=== PATIENT | female | born 1980 | race Caucasian/White ===

== ENCOUNTER 2016-08-25 13:22 | Inpatient (IN) | payer MEDICAID ==
--- NOTE | ~2016-08-25 | DS ---
Unit #: [id number] #: [id number] Patient: [facility]ID[facility] [id number] [facility] [address] [place] [address] [id number] MR#: [id number] NAME: PALOMO SCHNEIDER ROOM: P171 Age: 36 Sex: F Admission Date: 08/25/2016 : 1980 Discharge Date: 08/29/2016 Attending Physician: Snow Waldron M.D. DISCHARGE SUMMARY IDENTIFYING DATA Ms. Schneider is a 36-year-old single white female who is a resident of [place], [place] and was self-referred to the hospital and was accompanied by her mother. DISCHARGE DIAGNOSES Psychiatric: Opioid dependence, moderate and acute withdrawals; opioid-induced mood disorder. Medical: Hepatitis C. Stressors: Moderate psychosocial stressors. HISTORY OF PRESENT ILLNESS Please see initial psychiatric evaluation for details. PAST PSYCHIATRIC HISTORY Please see initial psychiatric evaluation for details. PAST MEDICAL HISTORY Please see initial psychiatric evaluation for details. HOSPITAL COURSE The patient was admitted to the adult chemical dependency unit at [facility] louisa Mariano and was oriented to the hospital environment. Routine p.r.n. medications were initiated, and she was started back on her home medications and opioid detox protocol was maintained. She was having some complicated withdrawals, but was polite, pleasant, and cooperative with treatment recommendations and as such, was able to come out of the detox without any complications and was wanting to go home and was willing to continue treatment on an outpatient basis, and as such, it was decided that she will be discharged home and will continue treatment on an outpatient basis. DISCHARGE MEDICATIONS None. DISCHARGE CONDITION Stable. PROGNOSIS Fair. Dictated by... nSow Waldron M.D. Unit #: [id number] #: [id number] Patient: PALOMO SCHNEIDER IAA/modl TD: 08/29/2016 07:32 JOB #: [id number] DISCHARGE SUMMARY Page 1 of 1 X Snow Waldron MD X DISCHARGE SUMMARY
--- NOTE | ~2016-08-25 | PN ---
Unit #: [id number] #: [id number] Patient: PALOMO SCHNEIDER [id number] [facility] [address] [place] [address] [id number] MR#: [id number] NAME: PALOMO SCHNEIDER. ROOM: P171 Age: 36 Sex: F Admission Date: 08/25/2016 : 1980 Attending Physician: Snow Waldron M.D. Admitting Physician: Snow Waldron M.D. Primary Care Physician: Primary Care Physician Minna NATH PROGRESS NOTES DATE 08/28/2016 DISCUSSION Ms. Schneider is a 36-year-old white female who was seen today and chart was reviewed and case was discussed with the staff. She has been anxious, withdrawn though has not shown any agitation, irritability and has been cooperative with treatment recommendations and has been taking medications and tolerating them fairly well with no reported side effects. MENTAL STATUS EXAMINATION Young white female who was casually dressed with fair personal hygiene and appears to be in no acute distress or discomfort. She was awake and alert on interaction with intact orientation. Her mood was anxious with congruent affect. She denies any suicidal or homicidal ideation and also denies any auditory or visual hallucinations. Her insight and judgement remains slightly impaired. TREATMENT PLAN 1. Will continue on current medications and treatment protocol. Will monitor her response to the medications and make further adjustments as needed. 2. Will continue to follow up. Dictated by... Snow Waldron M.D. IAA/gwen TD: 08/28/2016 17:36 JOB #: [id number] Unit #: [id number] #: [id number] Patient: PALOMO SCHNEIDER PHAM PROGRESS NOTES Page 1 of 1 X Snow Waldron MD PROGRESS NOTE
--- NOTE | ~2016-08-25 | HP ---
Unit #: [id number] #: [id number] Patient: PALOMO BERRIOS [id number] [place] [address] [id number] MR#: [id number] NAME: PALOMO BERRIOS ROOM: P171 Age: 36 Sex: F Admission Date: 08/25/2016 : 1980 Attending Physician: Snow Waldron M.D. Admitting Physician: Snow Waldron M.D. Primary Care Physician: Primary Care Physician No HISTORY AND PHYSICAL HISTORY OF PRESENT ILLNESS Palomo is a 36 year old admitted to [facility] because of her drug use. She shoots heroin. PAST MEDICAL HISTORY 1. Long history of opioid abuse to include IV heroin. 2. Hepatitis C. PAST SURGICAL HISTORY Nothing reported. ALLERGIES No known drug allergies. SOCIAL HISTORY Smokes one pack per day. Denies alcohol. Admits to long history of opioid abuse to include IV heroin. FAMILY HISTORY Medically noncontributory. REVIEW OF SYSTEMS CONSTITUTIONAL: No fever or chills. HEENT: Denies any sore throat, ear pain or runny nose. CARDIOVASCULAR: Denies chest pain, irregular heart rhythm or palpitations. CHEST: Denies shortness of breath or cough. No hemoptysis. GASTROINTESTINAL: Denies nausea, vomiting, diarrhea or chronic constipation. ENDOCRINE: Denies history of increased thirst or urination. No recent significant weight loss or gain. GENITOURINARY: Denies dysuria, frequency, or hematuria. SKIN: Denies any rashes. HEMATOLOGIC: Denies history of increased bleeding or bruising. MUSCULOSKELETAL: Denies any hot, swollen joints. No generalized muscle pain. NEUROLOGIC: Denies problems with vision or speech. No frequent, severe headaches. No numbness, tingling or weakness in any extremities. Denies loss of bladder or bowel control. CURRENT MEDICATIONS Detox protocol. PHYSICAL EXAMINATION Unit #: [id number] #: [id number] Patient: PALOMO BERRIOS GENERAL: Alert, well nourished. No apparent distress. VITAL SIGNS: Blood pressure 110/56, heart rate 80, respirations 16, and temperature 98.6. WEIGHT: 160. HEIGHT: 5 feet 7 inches. SKIN: Warm and dry without rash. She has significant track martin along both arms especially her right arm. There are multiple areas that are "knotty." There is no heat or pus noted. HEENT: Normocephalic. TMs not viewed. Oral and nasal passages clear. Conjunctivae clear. PERRLA. EOMs intact. NECK: Supple without lymphadenopathy or thyromegaly. HEART: Regular rate and rhythm without murmur. LUNGS: Clear. ABDOMEN: Soft, nontender. : Not done. EXTREMITIES: No evidence of cyanosis, clubbing or edema. Moves all without focal deficit. NEUROLOGICAL: Grossly within normal limits. Cranial Nerves: II: Visual zimmerman are intact. III, IV AND : Extraocular movements are intact. Pupils are equal, round and reactive to light. V: Facial sensation is grossly normal. VII: Facial movements and expression are normal. VIII: Auditory acuity grossly intact. IX, X: Uvula is midline. Phonation is normal. XI: Patient shrugs shoulders and turns head normally. XII: Tongue protrudes in the midline. Sensory and Motor Function: Sensory and motor sensation is grossly normal. Motor: moves all extremities well. Coordination: Gait is normal. Deep Tendon Reflexes: Intact. IMPRESSION Psychiatric admission. RECOMMENDATIONS PSYCHIATRIC: Per psychiatrist. MEDICAL: I see no contraindication to participate in this facility's activities. MEDICAL PROGNOSIS Good. MEDICAL CONDITION Stable. Dictated by... Jenni Jerry PCnithyaACinthya-Marsha. for Carmella Silverio/noemi TD: 08/26/2016 08:03 JOB #: [id number] Unit #: [id number] #: [id number] Patient: PALOMO BERRIOS HISTORY AND PHYSICAL Page 1 of 1 X Jenni Jerry HISTORY AND PHYSICAL
--- NOTE | ~2016-08-25 | PN ---
Unit #: [id number] #: [id number] Patient: PALOMO SCHNEIDER [id number] [facility] [address] [place] [address] [id number] I MR#: [id number] NAME: PALOMO SCHNEIDER. ROOM: P171 Age: 36 Sex: F Admission Date: 08/25/2016 : 1980 Attending Physician: Snow Waldron M.D. Admitting Physician: Snow Waldron M.D. Primary Care Physician: Primary Care Physician Minna NATH PROGRESS NOTES DATE 08/27/2016 DISCUSSION Ms. Schneider is a 36-year-old white female with substance abuse and mood disorder who was seen today and chart was reviewed and case was discussed with the staff. The patient has been anxious, withdrawn and rather seclusive to herself and appears to be in some distress or discomfort. She was going through detox. Meanwhile, she has been taking medications and tolerating them fairly well with no reported side effects. MENTAL STATUS EXAMINATION Young white female who was casually dressed with fair personal hygiene, appears to be in no acute distress or discomfort. She was awake and alert on interaction with intact orientation. Her mood was anxious with congruent affect. She denies any suicidal or homicidal ideations. Also, denies any auditory or visual hallucinations. Her insight and judgement remains slightly impaired. TREATMENT PLAN 1. We will continue her on her current medications and treatment protocol. We will monitor her response and make further adjustments as needed. 2. We will continue to follow up. Dictated by... Carmella Finnegan/roslyn TD: 08/27/2016 23:47 JOB #: [id number] Unit #: [id number] #: [id number] Patient: PALOMO SCHNEIDER PHAM PROGRESS NOTES Page 1 of 1 X Snow Waldron MD PROGRESS NOTE
--- NOTE | ~2016-08-25 | A ---
[facility] Nutrition Therapy DATE: 08/27/16 Patient: PALOMO BERRIOS Physician: JENNY Address: [address] [place] [address] Room/Bed: [address], Zip: [place] [address] Admit Date: 08/25/16 Date of : [birth year] Height: 5 7 Weight: 150 [id number] NUTRITIONAL ASSESSMENT: REASON: UNINTENTIONAL WEIGHT LOSS PATIENT ADMITTED FOR HEROIN DETOX PMH: HEP C Anthropometrics: HT: 67", WT: 151#, BMI: 23.6, %IBW: 112 Labs: 08/26/16- BUN: 5 Meds: DESYREL, DETOX PROTOCOL Assessment: PATIENT IS A 36 Y/O FEMALE ADMITTED FOR HEROIN DETOX. PATIENT IS CURRENTLY UNEMPLOYED, LIVES AT HOME WITH HER MOTHER, SMOKES 1 PPD, HAS DAILY HEROIN USE FOR LAST 5 MONTHS, AND FREQUENT CANNABIS AND COCAINE USE. UPON ADMIT PATIENT STATED A POOR APPETITE WITH A 40# WEIGHT LOSS X LAST SEVERAL MONTHS, AND SHE HAS HYPERSOMNIA SLEEPING AN AVERAGE OF 12HRS/DAY. NURSING REPORTED POOR PO INTAKES UPON ADMIT WITH GOOD PO INTAKES THIS MORNING. PATIENT IS ACTIVELY DETOXING AND SHE HAS C/O NAUSEA. CURRENT PSYCH MEDS MAY CAUSE WEIGHT AND APPETITE FLUCTUATIONS. THIS RD SUSPECTS WEIGHT AND APPETITE WILL STABILIZE AND POSSIBLY INCREASE FOLLOWING DETOX. PATIENT'S WEIGHT LOSS COINCIDES WITH HEROIN ABUSE FOR LAST 5 MONTHS AND HER HYPERSOMNIA. THERE ARE NO SKIN ISSUES NOTED ATT. PATIENT IS ON A REGULAR DIET WITH NO CAFFEINE, AND SHE RECEIVES LARGE PORTION ENTREES. Dx: UNINTENTIONAL WEIGHT LOSS R/T CURRENT CONDITION, DRUG USE AEB SELF-REPORTED WEIGHT LOSS AND DECREASED APPETITE, NUTRITIONAL RISK POINT Intervention: REGULAR DIET, LARGE PORTIONS, MEDS PER MD, DETOX, PSYCH Monitoring, Evaluation and Goals: 1. ADEQUATE PO INTAKES >50% OF MEALS 2. PREVENT, CORRECT MICRO/MACRO NUTRIENT DEFICIENCIES MONITOR: WEIGHTS, LABS, PO/FLUID INTAKES Recommendations: 1. CONTINUE REGULAR DIET WITH NO CAFFEINE AND LARGE PORTION ENTREES TOLERATED 2. ENCOURAGE ADEQUATE PO AND FLUID INTAKES 3. OBTAIN WEIGHTS ROUTINELY (EEVERY 3-4 DAYS) 4. IF PO INTAKES FALL BELOW 50% OF MEALS PLEASE ORDER ENSURE BID TO PROMOTE ADEQUATE KCAL [facility] Nutrition Therapy DATE: 08/27/16 Patient: PALOMO BERRIOS Physician: JENNY Address: [address] [place] [address] Room/Bed: [address], Zip: [place] [address] Admit Date: 08/25/16 Date of : [birth year] Height: 5 7 Weight: [id number] TO F/U PER PROTOCOL AND PRN R/T PATIENT MILDLY COMPROMISED Respectfully, AYLIN FOSS, RD, LD [facility] cc: client file
--- NOTE | ~2016-08-25 | PN ---
Unit #: [id number] #: [id number] Patient: PALOMO SCHNEIDER [id number] [facility] [address] [place] [address] [id number] MR#: [id number] NAME: PALOMO SCHNEIDER ROOM: P171 Age: 36 Sex: F Admission Date: 08/25/2016 : 1980 Attending Physician: Snow Waldron M.D. Admitting Physician: Snow Waldron M.D. Primary Care Physician: Primary Care Physician Minna HERNANDEZ NOTES DATE August 26, 2016 DISCUSSION Ms. Schneider is a 36-year-old white female, with substance abuse, and mood disorder, who was seen today and chart was reviewed and the case was discussed with the staff. She was lying in the bed and was seen to be in acute distress and discomfort, and was not feeling good as she was detoxing and she has not shown any agitation or aggression. Meanwhile, she has been taking the medications and tolerating them fairly well with no reported side effects. MENTAL STATUS EXAMINATION Young white female, who was casually dressed with fair personal hygiene and appears to be in no acute distress or discomfort. She was awake and alert on interaction with intact orientation. Her mood was anxious with a congruent affect. The patient denies any suicidal or homicidal ideations, and also denies any auditory or visual hallucinations. Her insight and judgment remain slightly impaired. TREATMENT PLAN 1. We will continue her on her current medications and treatment protocol, and will monitor her response to the medications, and make further adjustments as needed. 2. We will continue to followup. Dictated by... Carmella Finnegan/suleman TD: 08/27/2016 13:08 JOB #: [id number] Unit #: [id number] #: [id number] Patient: PALOMO SCHNEIDER PHAM PROGRESS NOTES Page 1 of 1 X Snow Waldron MD PROGRESS NOTE
--- NOTE | ~2016-08-25 | PA ---
Unit #: [id number] #: [id number] Patient: PALOMO SCHNEIDER [id number] [place] [address] [id number] MR#: [id number] NAME: PALOMO SCHNEIDER. ROOM: P171 Age: 36 Sex: F Admission Date: 08/25/2016 : 1980 Date of Assessment: Attending Physician: Snow Waldron M.D. Admitting Physician: Snow Waldron M.D. Primary Care Physician: Primary Care Physician No PSYCHIATRIC ASSESSMENT DATE OF SERVICE 08/25/2016. IDENTIFYING DATA Ms. Schneider is a 36-year-old single white female, who is a resident of [place], [place], and was self-referred to the hospital and was accompanied by her mother. CHIEF COMPLAINT "I've been using heroin for about 5 months." HISTORY OF PRESENT ILLNESS Ms. Schneider is a 36-year-old white female with history of opioid dependence, who reports that she relapsed on heroin 5 months ago and has been on a binge on regular use for the last 5 months and has had 2-1/2 years of sobriety before and graduated from drug court and that she immediately relapsed and reports using IV heroin use and reports using 2 g a day and does report increasing depression, anxiety, irritability, restlessness, feelings of hopelessness and helplessness. Reports history of suicidal ideations, though she denies any current suicide intent or plan. SUBSTANCE ABUSE HISTORY The patient reports history of experimentation with cannabis and cocaine, though opioids, particularly IV heroin remains her drug of choice and reports that she was sober for 2-1/2 years and that she relapsed and now has been using heroin straight for the last 5 months. PAST PSYCHIATRIC HISTORY The patient has a history of chemical dependency treatment in the past. Review of the medical records indicate that currently she is not active in any treatment program, is not seeing a psychiatrist, and is not taking any psychotropic medications. PAST MEDICAL HISTORY Significant for hepatitis C. ALLERGIES No known medication allergies. CURRENT MEDICATIONS None. Unit #: [id number] #: [id number] Patient: PALOMO SCHNEIDER PERSONAL AND SOCIAL HISTORY A 36-year-old white female, who reports that she is single, unemployed, and lives at home with her mother and has fairly decent social support system. MENTAL STATUS EXAMINATION Young white female, who was casually dressed with fair personal hygiene, appears to be in no acute distress or discomfort. She was awake and alert on interaction with intact orientation to time, place, and person. Her mood was anxious and depressed with a congruent affect. Her speech was slow and goal directed. She denies any suicidal or homicidal ideations and also denies any auditory or visual hallucinations. Her insight and judgment remain significantly impaired. DIAGNOSTIC IMPRESSION Psychiatric: Opioid dependence, moderate and acute withdrawals; opioid-induced mood disorder. Medical: Hepatitis C. Stressors: Moderate psychosocial stressors. TREATMENT PLAN 1. The patient has presented with history of substance abuse and mood disorder, and has been decompensating and will need inpatient hospitalization for detoxification, safety, and stabilization. We will start her on detox protocol. We will closely monitor for any worsening withdrawal symptoms. 2. Supportive therapy was provided to the patient. 3. Safe, structured, and nourishing environment will be reported. ESTIMATED LENGTH OF STAY 5 to 7 days. ABILITY TO HELP SELF Limited. WILLINGNESS TO HELP SELF The patient appears to be willing to help self. STRENGTHS 1. Communicative. 2. Cooperative. PROBLEMS 1. Chronic dysphoric symptoms. 2. Chronic chemical dependency. 3. Poor social support system. DISCHARGE CRITERIA This will be contingent upon the patient's ability to go through detox without having any significant withdrawal symptoms as well as her ability to stay safe to herself, particularly after discharge from the hospital. Dictated by... Carmella Finnegan/all Unit #: [id number] #: [id number] Patient: PALOMO SCHNEIDER TD: 08/26/2016 06:38 JOB #: [id number] PSYCHIATRIC ASSESSMENT Page 1 of 1 X Snow Waldron MD X PSYCHIATRIC ASSESSMENT
[2016-08-26 09:54] LABS: BASOPHIL# 0.1 X10e3 (0-0.3); BASOPHIL% 0.7 % (0-2.5); EOSINOPHIL# 0.2 X10e3 (0-0.7); EOSINOPHIL% 2.9 % (0.0-7.0); HEMATOCRIT 40.9 % (35.0-45.0); HEMOGLOBIN 13.4 gm/dL (12.0-16.0); LYMPHOCYTE# 1.3 X10e3 (1.0-3.5); LYMPHOCYTE% 17.5 % (17.0-45.0); MEAN CELL VOLUME 89.1 FL (83-96); MEAN CORPUSCULAR HEMOGLOBIN 29.3 PG (28-34); MEAN CORPUSCULAR HGB CONC 32.8 g/dL (30-36); MEAN PLATELET VOLUME 7.6 FL (6.5-11.5); MONOCYTE# 0.6 X10e3 (0-1.0); MONOCYTE% 7.2 % (3.0-12.0); NEUTROPHIL# 5.5 X10e3 (1.5-7.1); NEUTROPHIL% 71.7 % (40-75); PLATELET COUNT 262 X10e3 (140-420); RED BLOOD COUNT 4.59 X10e (3.90-5.30); WHITE BLOOD COUNT 7.7 X10e3 (4.0-10.5)
[2016-08-26 09:57] LABS: DIFF IND NO
[2016-08-26 10:22] LABS: ALBUMIN SERUM 3.6 g/dL (3.5-5.0); BILIRUBIN,TOTAL 0.6 mg/dL (0.2-2.0); BUN/CREATININE RATIO 8.33; CALCIUM SERUM 9.2 mg/dL (8.4-10.2); CREATININE SERUM 0.6 mg/dL (0.6-1.4); GLOM FILT RATE Estimated 118.1 mL/min (>60); POTASSIUM 4.3 mmol/L (3.5-5.1); PROTEIN TOTAL SERUM 6.7 g/dL (6.0-8.3)
[2016-08-27 09:32] LABS: URINE APPEARANCE CLOUDY; URINE BILIRUBIN NEG (NEG); URINE BLOOD NEG (NEG); URINE COLOR YELLOW; URINE GLUCOSE NEG (NEG); URINE KETONE NEG (NEG); URINE LEUKOCYTE ESTERASE NEG (NEG); URINE NITRATE NEG (NEG); URINE PROTEIN NEG (NEG); URINE SPECIFIC GRAVITY 1.015 (1.003-1.035)
[2016-08-28 12:45] LABS: AMPHETAMINE NEG (NEG); BARBITURATES NEG (NEG); BENZODIAZEPINES NEG (NEG); COCAINE POS (NEG); MARIJUANA POS (NEG); OPIATES POS (NEG); TRICYCLIC ANTIDEPRESSANTS NEG (NEG); U METHADONE NEG (NEG)
== END 2016-08-29 09:00 | DRG 897 ==
LOC: P1E 16:28
PROVIDERS: Psychiatry & Neurology Psychiatry
PROC: HZ2ZZZZ Detoxification Services for Substance Abuse Treatment (ICD-10-PCS; principal; 2016-08-25)
DX: F11.23 Opioid dependence with withdrawal (principal); F11.24 Opioid dependence with opioid-induced mood disorder; B19.20 Unspecified viral hepatitis C without hepatic coma; F17.210 Nicotine dependence, cigarettes, uncomplicated
CPT/HCPCS: 80053; 80307; 81003; 84703; 85025; 86592